=== PATIENT | female | born 1985 | race Caucasian/White ===

== ENCOUNTER 2022-12-23 07:39 | Outpatient (OUT) | payer MEDICARE, MEDICAID, SELFPAY ==
[2022-12-23 09:03] LABS: Anion Gap 16.9; BUN Creatinine Ratio 14.9; Calcium 8.9 mg/dL (8.5-10.1); Carbon Dioxide 21.7 mmol/L (21.0-32.0); Chloride 105 mmol/L (98-107); Estimated GFR (African America >60 (>=60); Estimated GFR (Non-African Ame >60 (>=60); Glucose 90 mg/dL (74-106); Potassium 5.6 mmol/L (3.5-5.1); Sodium 138 mmol/L (136-145); Thyroid Stimulating Hormone 1.923 uIU/mL (0.358-3.740)
== END 2022-12-23 07:40 | disposition home or self-care (01) ==
PROVIDERS: PCP Family Medicine; Visit Provider Family Medicine
DX: R53.83 Other fatigue (principal)
CPT/HCPCS: 36415; 36416; 80048; 84443